=== PATIENT | female | born 1940 | race Two or more races ===

== ENCOUNTER 2024-04-01 15:38 | Inpatient (IN) | payer MEDICARE, OTHER ==
[~2024-04-01] VITALS: Ht 165.1 cm; Wt 45.0 kg
[2024-04-01] MEDS: CEFEPIME 1 GM in IV D5W 50 ML IV ONE (16:30)
[2024-04-01] MEDS ORDERED: ZOLPIDEM TARTRATE 5 MG TABLET PO PRN (18:00)
[2024-04-01] MEDS ORDERED: Z GUARD REMEDY 4 OZ OINT TP PRN (18:00)
[2024-04-01] MEDS ORDERED: ONDANSETRON HCL/PF 4 MG/2 ML VIAL IVP PRN (18:00)
[2024-04-01] MEDS: IV NS 0.9% 1,000 ML BAG IV ONE (18:00)
[2024-04-01] MEDS ORDERED: MAG HYDROX/AL HYDROX/SIMETH 30 ML UDC PO PRN (18:00)
[2024-04-01] MEDS ORDERED: ACETAMINOPHEN 325 MG TABLET PO PRN (18:00)
[2024-04-01] MEDS ORDERED: MAGNESIUM HYDROXIDE 30 ML UDC PO PRN (18:00)
[2024-04-01 18:05] LABS: BASOPHILS % (AUTO) 0.6 % (0.0-2.0); EOSINOPHILS # (AUTO) 0.1 K/uL (0.0-0.7); EOSINOPHILS % (AUTO) 0.9 % (0.0-6.0); HEMATOCRIT 33 % (33-45); HEMOGLOBIN 10.7 g/dL (11.5-14.8); LYMPHOCYTES # (AUTO) 1.2 K/uL (0.8-4.8); LYMPHOCYTES % (AUTO) 15.5 % (20.0-44.0); MEAN CORPUSCULAR HEMOGLOBIN 33 PG (26.0-33.0); MEAN CORPUSCULAR HGB CONC 33 g/dl (31.0-36.0); MEAN CORPUSCULAR VOLUME 99 fL (82-100); MONOCYTES # (AUTO) 0.9 K/uL (0.1-1.30); MONOCYTES % (AUTO) 11.7 % (2.0-12.0); NEUTROPHILS # (AUTO) 5.7 K/uL (1.8-8.9); NEUTROPHILS % (AUTO) 71.3 % (43.0-81.0); PLATELET COUNT (AUTO) 388 K/uL (150-450); RED BLOOD CELL COUNT(AUTO) 3.27 MIL/uL (4.0-5.2)
[2024-04-01] MEDS ORDERED: HYDR-3972 PO (18:15)
[2024-04-01] MEDS ORDERED: CHOL100043 PO (18:15)
[2024-04-01] MEDS ORDERED: MAGN400O6 PO (18:15)
[2024-04-01] MEDS ORDERED: LEVO175T7 PO (18:15)
[2024-04-01] MEDS ORDERED: ALBU8.5H8 IH (18:15)
[2024-04-01] MEDS ORDERED: FOLI0.8T3 PO (18:15)
[2024-04-01] MEDS ORDERED: BISA10SU11 RC (18:15)
[2024-04-01] MEDS ORDERED: CYAN100T9 PO (18:15)
[2024-04-01] MEDS ORDERED: ACET325T53 PO (18:15)
[2024-04-01] MEDS ORDERED: POLY15DR31 EACHEYE (18:15)
[2024-04-01] MEDS ORDERED: ATOR40TA PO (18:15)
[2024-04-01] MEDS ORDERED: NA P133E RC (18:15)
[2024-04-01] MEDS ORDERED: ASCO500T21 PO (18:15)
[2024-04-01 18:20] LABS: CALCIUM, SERUM 9.5 mg/dL (8.5-10.1); CARBON DIOXIDE 24 mmol/L (21-32); CHLORIDE 103 mmol/L (98-107); CREATININE 1.3 mg/dL (0.6-1.3); GLUCOSE 91 mg/dL (74-106); SODIUM SERUM 138 mmol/L (136-145); UREA NITROGEN, BLOOD 37 mg/dL (7-18)
[2024-04-01 18:26] LABS: ALANINE AMINOTRANSFERASE 16 U/L (12-78); ALBUMIN 3.3 g/dL (3.4-5.0); ALKALINE PHOSPHATASE 42 U/L (46-116); ASPARTATE AMINOTRANSFERASE 22 U/L (15-37); BILIRUBIN,DIRECT 0.2 mg/dL (0.0-0.2); BILIRUBIN,TOTAL 1.1 mg/dL (0.2-1.0); TOTAL PROTEIN, SERUM 7.4 g/dL (6.4-8.2)
[2024-04-01 18:29] LABS: INR 1.05 (0.91-1.10); LACTIC ACID 1.6 mmol/L (0.4-2.0); PROTHROMBIN TIME 10.8 SECS (9.2-11.1)
[2024-04-01 18:30] LABS: PARTIAL THROMBOPLASTIN TIME 26.8 SEC (24.3-34.3)
[2024-04-01 19:47] LABS: BILIRUBIN,URINE MODERATE (NEGATIVE); BLOOD, URINE Negative Ery/uL (NEGATIVE); COLOR,URINE YELLOW (YELLOW); KETONES,URINE Trace mg/dL (NEGATIVE); LEUKOCYTE ESTERASE ,URINE Trace (NEGATIVE); NITRITE, URINE Positive (NEGATIVE); PH,URINE 5.5 (5.0-8.0); PROTEIN,URINE Trace mg/dl (NEGATIVE); UGLUCOSE Negative (NEGATIVE); UROBILINOGEN,URINE 0.2 EU/dL (0.2)
[2024-04-01 19:49] LABS: APPEARANCE,URINE SLIGHTLY CLOUDY (CLEAR)
[2024-04-01 19:58] LABS: BACTERIA,URINE Many /HPF (None Seen); SQUAMOUS EPITHELIAL CELL,UR Rare /HPF (None Seen)
[2024-04-01 19:59] LABS: ADD URINE CULTURE YES; RBC,URINE 0-2 /HPF (0-2)
[2024-04-01] MEDS: IV NS 0.9% 1,000 ML IV PRN (21:33)
[2024-04-02 07:00] LABS: BASOPHILS % (AUTO) 0.5 % (0.0-2.0); EOSINOPHILS # (AUTO) 0.1 K/uL (0.0-0.7); EOSINOPHILS % (AUTO) 0.9 % (0.0-6.0); HEMATOCRIT 29 % (33-45); HEMOGLOBIN 9.5 g/dL (11.5-14.8); LYMPHOCYTES # (AUTO) 0.7 K/uL (0.8-4.8); LYMPHOCYTES % (AUTO) 11.7 % (20.0-44.0); MEAN CORPUSCULAR HEMOGLOBIN 32 PG (26.0-33.0); MEAN CORPUSCULAR HGB CONC 33 g/dl (31.0-36.0); MEAN CORPUSCULAR VOLUME 97 fL (82-100); MONOCYTES # (AUTO) 0.7 K/uL (0.1-1.30); MONOCYTES % (AUTO) 10.4 % (2.0-12.0); NEUTROPHILS # (AUTO) 4.9 K/uL (1.8-8.9); NEUTROPHILS % (AUTO) 76.5 % (43.0-81.0); PLATELET COUNT (AUTO) 366 K/uL (150-450); RED BLOOD CELL COUNT(AUTO) 2.99 MIL/uL (4.0-5.2); WHITE BLOOD COUNT (AUTO) 6.4 K/uL (4.3-11.0)
[2024-04-02 07:20] LABS: CALCIUM, SERUM 8.1 mg/dL (8.5-10.1); MAGNESIUM 2.3 mg/dL (1.8-2.4); PHOSPHORUS 3.7 mg/dL (2.5-4.9); POTASSIUM 4.2 mmol/L (3.5-5.1)
[2024-04-02] MEDS: CEFTRIAXONE 1 G in IV D5W 50 ML IV SCH (13:39)
[2024-04-02 16:07] VITALS: BP 117/69; TEMP 98.4; O2SAT 98
[2024-04-02 20:00] VITALS: BP 110/64; TEMP 97.8; O2SAT 94
[2024-04-03 08:00] VITALS: BP 132/64; TEMP 98.2; O2SAT 94
[2024-04-03 20:00] VITALS: BP 148/91; TEMP 97.5; O2SAT 91; O2SAT 93
[2024-04-04 08:41] VITALS: BP 128/66; TEMP 97.6; O2SAT 95
[2024-04-04 16:14] VITALS: BP 104/94; TEMP 97.9; O2SAT 99
[2024-04-04 20:00] VITALS: BP 134/109; TEMP 97.5; O2SAT 92
[2024-04-05 07:18] LABS: BASOPHILS % (AUTO) 0.7 % (0.0-2.0); EOSINOPHILS # (AUTO) 0.1 K/uL (0.0-0.7); HEMATOCRIT 30 % (33-45); LYMPHOCYTES # (AUTO) 0.8 K/uL (0.8-4.8); MEAN CORPUSCULAR HEMOGLOBIN 33 PG (26.0-33.0); MEAN CORPUSCULAR HGB CONC 33 g/dl (31.0-36.0); MEAN CORPUSCULAR VOLUME 99 fL (82-100); MONOCYTES # (AUTO) 0.7 K/uL (0.1-1.30); NEUTROPHILS # (AUTO) 3.7 K/uL (1.8-8.9); NEUTROPHILS % (AUTO) 69.3 % (43.0-81.0); PLATELET COUNT (AUTO) 396 K/uL (150-450); RED BLOOD CELL COUNT(AUTO) 3.04 MIL/uL (4.0-5.2); RED CELL DISTRIBUTION WIDTH 14.5 % (11.5-15.0); WHITE BLOOD COUNT (AUTO) 5.3 K/uL (4.3-11.0)
[2024-04-05 07:50] LABS: CALCIUM, SERUM 8.7 mg/dL (8.5-10.1); CREATININE 0.8 mg/dL (0.6-1.3); POTASSIUM 3.8 mmol/L (3.5-5.1)
[2024-04-05 08:00] VITALS: BP 142/94; TEMP 98; O2SAT 94
== END 2024-04-05 15:25 | DRG 640 ==
LOC: ER 16:45 → TRANSITION 04-02 00:52 → MED 04-02 07:26
PROVIDERS: ADMIT Nurse Practitioner Acute Care; ATTEND Nurse Practitioner Acute Care
DX: R62.7 Adult failure to thrive (principal); E43 Unspecified severe protein-calorie malnutrition; G93.41 Metabolic encephalopathy; R64 Cachexia; Z68.1 Body mass index [BMI] 19.9 or less, adult; F03.90 Unspecified dementia, unspecified severity, without behavioral disturbance, psychotic disturbance, mood disturbance, and anxiety; E86.0 Dehydration; E03.9 Hypothyroidism, unspecified; E78.5 Hyperlipidemia, unspecified; I10 Essential (primary) hypertension; Z79.899 Other long term (current) drug therapy; Z88.2 Allergy status to sulfonamides; R53.1 Weakness
CPT/HCPCS: 36415; 80048-TC; 80076-TC; 81001; 83605-TC; 83735-TC; 84100-TC; 85025-TC; 85730-TC; 87040-TC; 87086-TC; 92526; 92611-TC; A4223; G0378; J0692; J0696; J7030; J7060